=== PATIENT | male | born 1975 | race Caucasian/White ===

== ENCOUNTER 2017-06-09 14:09 | Emergency (ER) | payer OTHER ==
[~2017-06-09] VITALS: Ht 172.7 cm; Wt 79.4 kg
[~2017-06-09 14:09] MED LIST: ALPRAZOLAM ER1 MG PO; AMBIEN10 MG PO; CYMBALTA60 MG PO; GABAPENTIN300 MG PO; IBUPROFEN600 MG PO; LIDOCAINE700 MG TOP; LYRICA150 MG; MIRTAZAPINE15 MG PO; NORCO 7.5-3251 EACH PO; OXYCODONE HCL5 MG PO; PERCOCET 10-321 EACH PO; PERCOCET 5-3251 EACH PO; TRAZODONE HCL50 MG; TYLENOL WITH C1 EACH PO; ZOLOFT100 MG PO; ZOLOFT50 MG PO
[2017-06-09] MEDS ORDERED: NORTRIPTYLINE H10 MG PO (14:50)
[2017-06-09] MEDS ORDERED: NORCO 5-325 TA1 EACH PO (15:11)
--- OUTSIDE RECORDS SUMMARY | 2017-06-09 15:15 | XMS | Clinical Summary ---
Demographics + + + | Address | [address] [place] [address] | | | [place] [address] | + + + | Home Phone | | + + + | Preferred Language | Unknown | + + + | Marital Status | Single | + + + | Episcopalian Affiliation | NON | + + + | Race | White | + + + | Ethnic Group | Not or | + + + Author + + + | Author | [facility] | + + + | Organization | [facility] | + + + | Address | Unknown | + + + | Phone | Unavailable | + + + Support + + +---------+ + | Name | Relationship | Address | Phone | + + +---------+ + | Erin Ramirez | ECON | Unknown | | + + +---------+ + Care Team Providers + +------+ + | Care Picture Copyist Name | Role | Phone | + +------+ + | No Pcp Per Patient | PP | Unavailable | + +------+ + Source Comments MIKAEL is fully live on both [facility] and [facility] InPatient.[facility] Allergies + + + + + + | Active Allergy | Reactions | Severity | Noted | Comments | | | | | Date | | + + + + + + | Penicillins | Rash | | 04/07/19 | | | | | | 14 | | + + + + + + Current Medications + + +---------+---------+------+------+-------+ | Prescription | Sig. | Disp. | Refills | Star | End | Statu | | | | | | t | Date | s | | | | | | Date | | | + + +---------+---------+------+------+-------+ | pregabalin 300 mg | Take 300 mg by mouth | | | | | Activ | | oral capsule | two times daily. | | | | | e | | | Max: 600 mg/day | | | | | | + + +---------+---------+------+------+-------+ | DULoxetine 60 mg | Take 60 mg by mouth | | | | | Activ | | oral capsule,delayed | two times daily. | | | | | e | | release(DR/EC) | | | | | | | + + +---------+---------+------+------+-------+ | lidocaine | Apply at the stump, | 30 | 6 | 10/0 | | Activ | | (LIDODERM) 5 %(700 | 12 hours on and 12 | patch | | 6/20 | | e | | mg/patch) topical | hours off | | | 15 | | | | adhesive | | | | | | | | patch,medicated | | | | | | | + + +---------+---------+------+------+-------+ | gabapentin 300 mg | Take 1-2 capsules by | 180 | 3 | 10/0 | | Activ | | oral capsule | mouth three times | capsule | | 6/20 | | e | | | daily. | | | 15 | | | + + +---------+---------+------+------+-------+ | diphenhydrAMINE 25 | Take 25 mg by mouth | | | | | Activ | | mg oral capsule | every six hours as | | | | | e | | | needed. | | | | | | + + +---------+---------+------+------+-------+ | | Take 1 tablet by | 50 | 0 | 02/0 | | Activ | | HYDROcodone-acetamin | mouth every six | tablet | | 9/20 | | e | | ophen 10-325 mg oral | hours as needed for | | | 16 | | | | tablet | moderate pain. Not | | | | | | | | to exceed 3250 mg of | | | | | | | | acetaminophen from | | | | | | | | all products per 24 | | | | | | | | hour period. 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) | 09/29/2013 | + + + | Phantom limb pain (HCC) | 09/08/2013 | + + + | Generalized anxiety disorder | 09/08/2013 | + + + | Hand laceration | 04/07/2013 | + + + | Amputation of hand, left, complicated (HCC) | 04/07/2013 | + + + Family History + + +------+ + | Medical History | Relation | Name | Comments | + + +------+ + | Alcohol/Drug | Father | | | + + +------+ + | Arthritis | Father | | | + + +------+ + | Arthritis | Maternal | | | | | Grandfath | | | | | er | | | + + +------+ + | Arthritis | Maternal | | | | | Grandmoth | | | | | er | | | + + +------+ + + +------+--------+ + | Relation | Name | Status | Comments | + +------+--------+ + | Father | | | | + +------+--------+ + | Maternal Grandfather | | | | + +------+--------+ + | Maternal Grandmother | | | | + +------+--------+ + Social History + +-------+ +--------+------+ | Tobacco Use | Types | Packs/Day | Years | Date | | | | | Used | | + +-------+ +--------+------+ | Never Smoker | | | | | + +-------+ +--------+------+ + + +---------+ + | Alcohol Use | Drinks/We | oz/Week | Comments | | | ek | | | + + +---------+ + | Yes | 4-5 | 2.0 - | | | | Standard | 2.5 | | | | drinks or | | | | | | | | | | equivalen | | | | | t | | | + + +---------+ + + + + | Sex Assigned at | Date Recorded | | | | + + + | Not on file | | + + + Last Filed Vital Signs + + + + | Vital Sign | Reading | Time Taken | + + + + | Blood Pressure | 143/95 | 03/20/2015 11:58 AM PST | + + + + | Pulse | 98 | 03/20/2015 11:58 AM PST | + + + + | Temperature | 37.2 C (98.9 F) | 03/20/2015 11:58 AM PST | + + + + | Respiratory Rate | 14 | 03/20/2015 11:58 AM PST | + + + + | Oxygen Saturation | 100% | 03/20/2015 11:58 AM PST | + + + + | Inhaled Oxygen | - | - | | Concentration | | | + + + + | Weight | 77.1 kg (170 lb) | 03/20/2015 11:58 AM PST | + + + + | Height | 174.6 cm (5' 8.75") | 03/20/2015 11:58 AM PST | + + + + | Body Mass Index | 25.29 | 03/20/2015 11:58 AM PST | + + + + Plan of Treatment +--------+---------+ + + + | Date | Type | Specialty | Care Team | Description | +--------+---------+ + + + | 07/15/ | Office | | Manolo Rojas, | | | 2018 | Visit | | ,PhD [address] | | | | | | [address] | | | | | | [place], [place] | | | | | | [address] | | | | | | [phone] | | | | | | | | +--------+---------+ + + + + + + + + | Health Maintenance | Due Date | Last Done | Comments | + + + + + | INFLUENZA VACCINE | | | | | (FLU SHOT) | 8 | | | + + + + + Results Not on filefrom Last 3 Months
--- OUTSIDE RECORDS SUMMARY | 2017-06-09 15:15 | XMS | Clinical Summary ---
Demographics + + + | Address | [address] [place] [address] | | | [place] [address] | + + + | Home Phone | | + + + | Preferred Language | Unknown | + + + | Marital Status | Single | + + + | Yazidism Affiliation | NON | + + + [...] Team Providers + +------+ + | Care Carton Making Machine Operator Name | Role | Phone | + +------+ + | No Pcp Per Patient | PP | Unavailable | + +------+ + Source Comments MIKAEL is fully live on both [facility] Ambulatory and [facility] InPatient.[facility] Allergies + + + + + + [...] | 2018 | Visit | | ,PhD [address] | | | | | | [address] | | | | | | [place], [place] | | | | | | [address] | | | | | | [phone] | | | | | | | [...]
== END 2017-06-09 15:25 | disposition home or self-care (01) ==
LOC: ED 14:09
DX: G54.6 Phantom limb syndrome with pain (principal); Z88.0 Allergy status to penicillin; Z88.5 Allergy status to narcotic agent; Z79.899 Other long term (current) drug therapy; Z89.212 Acquired absence of left upper limb below elbow
CPT/HCPCS: 99283

== ENCOUNTER 2017-07-20 11:57 | Emergency (ER) | payer OTHER ==
[~2017-07-20] VITALS: Ht 175.3 cm; Wt 74.8 kg
[~2017-07-20 11:57] MED LIST changes: +NORCO 5-325 TA1 EACH PO; +NORTRIPTYLINE H10 MG PO
== END 2017-07-20 12:14 | disposition home or self-care (01) ==
LOC: ED 11:57
DX: Z00.8 Encounter for other general examination (principal)

== ENCOUNTER 2017-08-10 13:20 | Emergency (ER) | payer OTHER ==
[~2017-08-10] VITALS: Ht 175.3 cm; Wt 74.8 kg
[2017-08-10] MEDS ORDERED: ALPRAZOLAM1 MG PO (13:33)
== END 2017-08-10 16:46 | disposition home or self-care (01) ==
LOC: ED 13:20
DX: F19.921 Other psychoactive substance use, unspecified with intoxication with delirium (principal); Z88.0 Allergy status to penicillin; Z88.5 Allergy status to narcotic agent; Z79.899 Other long term (current) drug therapy
CPT/HCPCS: 80053; 81001; 85025; 96360; 96361; 99283; G0480; J7030